=== PATIENT | female | born 1990 | race Caucasian/White ===

== ENCOUNTER 2023-04-17 19:09 | Inpatient (IN) | payer BC ==
[~2023-04-17] VITALS: Ht 163 cm; Wt 77.1 kg
[~2023-04-17 19:09] MED LIST: METHYLERGONOVINE INJ 0.2 MG/ML AMP IM ONE
[2023-04-17 19:34] VITALS: BP 124/82
[2023-04-17] MEDS ORDERED: LACTATED RINGERS 1,000 ML 500 ML IV PRN (20:00)
[2023-04-17] MEDS ORDERED: LIDOCAINE 2% w/EPI 1:200,000 20 ML VIAL INJ PRN (20:00)
[2023-04-17] MEDS ORDERED: D5 LR 1,000 ML IV SOLN 1,000 ML IV SCH (20:00)
[2023-04-17] MEDS ORDERED: MINERAL OIL 30 ML UDC TOP PRN (20:00)
[2023-04-17 20:05] LABS: BASOPHILS % (AUTO) 0 % (0-10); EOSINOPHILS # (AUTO) 0.1 10^3/uL (0.0-0.3); EOSINOPHILS % (AUTO) 1 % (0-10); HEMATOCRIT 29 % (35-52); HEMOGLOBIN 9.5 g/dL (11.5-16.0); LYMPHOCYTES % (AUTO) 17 % (12-44); MEAN CORPUSCULAR HEMOGLOBIN 28 pg (25-34); MEAN CORPUSCULAR HGB CONC 33 g/dL (32-36); MEAN CORPUSCULAR VOLUME 85 fL (80-99); MEAN PLATELET VOLUME 11.3 fL (9.0-12.2); MONOCYTES # (AUTO) 0.9 10^3/uL (0.0-1.0); MONOCYTES % (AUTO) 8 % (0-12); NEUTROPHILS # (AUTO) 8.5 10^3/uL (1.8-7.8); NEUTROPHILS % (AUTO) 73 % (42-75); PLATELET COUNT 230 10^3/uL (130-400); WHITE BLOOD COUNT 11.6 10^3/uL (4.3-11.0)
[2023-04-17 21:25] LABS: BACTERIA,URINE NEGATIVE /HPF; BILIRUBIN,URINE NEGATIVE (NEGATIVE); CLARITY,URINE CLEAR; COLOR,URINE YELLOW; GLUCOSE, URINE (UA) NEGATIVE (NEGATIVE); KETONES,URINE NEGATIVE (NEGATIVE); LEUKOCYTE ESTERASE ,URINE NEGATIVE (NEGATIVE); NITRITE,URINE NEGATIVE (NEGATIVE); PH,URINE 6.5 (5-9); PROTEIN,URINE NEGATIVE (NEGATIVE); SQUAMOUS EPITHELIAL CELL,UR 0-2 /HPF; WBC,URINE RARE /HPF
[2023-04-17] MEDS ORDERED: CATHETER FLUSH 10 ML SYR IV SCH (22:00)
[2023-04-18] VITALS (63 sets, daily range): BP systolic 92–144; BP diastolic 51–76
[2023-04-18] MEDS ORDERED: LACTATED RINGERS 1,000 ML 500 ML IV PRN (05:30)
[2023-04-18] MEDS: D5 LR 1,000 ML IV SOLN 1,000 ML IV SCH ×2 (05:46→13:33)
[2023-04-18] MEDS ORDERED: OXYTOCIN DRIP PRE-MIX 500 ML IV SCH (06:00)
[2023-04-18] MEDS ORDERED: OXYTOCIN DRIP PRE-MIX 500 ML IV ONE ×2 (06:04→22:56)
--- NOTE | 2023-04-18 11:59 | History & Physical-OB ---
OB - Chief Complaint & HPI Date/Time Date of Admission: Date of Admission: Apr 17, 2023 at 19:09 Date seen by a Provider: Apr 18, 2023 Time Seen by a Provider: 08:30 Chief Complaint/History OB-Reason for Admission/Chief: Induction of Labor Hx : 2 Hx Para: 1 Expected Date of Delivery: Apr 16, 2023 Gestational Age in Weeks: 40 Gestational Age in Days: 1 Other reason for admission: Patient desires elective IOL History of Labs O+, Ab neg, Rub Imm HIV/RPR/HepB/C NR Normal 1 hr GTT GBS neg Allergies and Home Medications Allergies Coded Allergies: Pertussis Vaccines (Verified Allergy, Mild, Itching, 04/17/23) Patient Home Medication List Home Medication List Reviewed: Yes OB - History Hx of Present Care: Yes Ultrasounds: Normal mid trimester US Obstetrical Complications: None Medical Complications: None Obstetrical History Hx : 2 Hx Para: 1 Hx # Term Pregnancies: 1 Number of Living Children: 1 Patient Past Medical History N/a Social History/Family History Alcohol Use: Denies Use Recreational Drug Use: No Smoking Cessation: Never smoker Immunizations Influenza Vaccine Up-to-Date: No; Not Current Hepatitis A: Yes Hepatitis B: Yes Tetanus Booster (TDap): Less than 5yrs Rubella: immune RPR/VDRL: Negative GBS Status: Negative HBsAG: Negative OB - Admission Exam Physical Exam Vitals: Vital Signs 04/18/23 04/18/23 04/18/23 07:15 07:30 11:00 Temp 36.7 Pulse 68 Resp 18 B/P (MAP) 106/63 (77) Pulse Ox 98 O2 Delivery Room Air HEENT: NCAT Heart: Rhythm Normal Lungs: Clear Abdomen: Gravid Cervical Dilatation: 5cm Effacement: 75% Station: Ballotable Membranes: Intact Heart Rate: 140's Accelerations: Accelerations Present Decelerations: No Decelerations Short Term Variability: Present Pricing/Signage Team Member Variability: Average (6-25) Contractions on Admission: 6-10 Minutes Apart Intensity: Moderate Lam Scoring Tool (Modified) Dilation (cm): 3-4cm (2) Effacement (%): 51-79% (2) Descent/Station: -2 (1) Cervix Consistency: Soft (2) Cervix Position: Middle/Mid-Position (1) Subtract 1 point for: Nulliparity (-1) Labs Laboratory Tests Test 04/17/23 19:17 04/17/23 19:40 Range/Units Urine Color YELLOW Urine Clarity CLEAR Urine pH 6.5 5-9 Urine Specific [place] 1.010 L 1.016-1.022 Urine Protein NEGATIVE NEGATIVE Urine Glucose (UA) NEGATIVE NEGATIVE Urine Ketones NEGATIVE NEGATIVE Urine Nitrite NEGATIVE NEGATIVE Urine Bilirubin NEGATIVE NEGATIVE Urine Urobilinogen 0.2 < = 1.0 MG/DL Urine Leukocyte Esterase NEGATIVE NEGATIVE Urine RBC (Auto) NEGATIVE NEGATIVE Urine RBC NONE /HPF Urine WBC RARE /HPF Urine Squamous Epithelial Cells 0-2 /HPF Urine Crystals NONE /LPF Urine Bacteria NEGATIVE /HPF Urine Casts NONE /LPF Urine Mucus NEGATIVE /LPF Urine Culture Indicated NO White Blood Count 11.6 H 4.3-11.0 10^3/uL Red Blood Count 3.37 L 3.80-5.11 10^6/uL Hemoglobin 9.5 L 11.5-16.0 g/dL Hematocrit 29 L 35-52 % Mean Corpuscular Volume 85 80-99 fL Mean Corpuscular Hemoglobin 28 25-34 pg Mean Corpuscular Hemoglobin Concent 33 32-36 g/dL Red Cell Distribution Width 13.6 10.0-14.5 % Platelet Count 230 130-400 10^3/uL Mean Platelet Volume 11.3 9.0-12.2 fL Immature Granulocyte % (Auto) 1 % Neutrophils (%) (Auto) 73 42-75 % Lymphocytes (%) (Auto) 17 12-44 % Monocytes (%) (Auto) 8 0-12 % Eosinophils (%) (Auto) 1 0-10 % Basophils (%) (Auto) 0 0-10 % Neutrophils # (Auto) 8.5 H 1.8-7.8 10^3/uL Lymphocytes # (Auto) 2.0 1.0-4.0 10^3/uL Monocytes # (Auto) 0.9 0.0-1.0 10^3/uL Eosinophils # (Auto) 0.1 0.0-0.3 10^3/uL Basophils # (Auto) 0.0 0.0-0.1 10^3/uL Immature Granulocyte # (Auto) 0.1 0.0-0.1 10^3/uL Syphilis Total Antibody Negative Negative OB - Assessment/Plan/Diagnosis Assessment Assessment: induction of labor Admission Dx Third Trimester 40 week gestation Admission Status: Inpatient Order (span 2 midnights) Reason for Inpatient Admission: Labor and post care Plan Other Plan 33 yo @ 40.1 wga here for elective IOL Plan - GBS neg - Pitocin IOL - Will hold off on AROM due to blottable fetus ALEYDA PRO MD Apr 18, 2023 11:59
[2023-04-18] MEDS ORDERED: fentaNYL 2 mcg/ml BUPIVA 0.125 100 ML ONE (14:21)
[2023-04-18] MEDS ORDERED: NALOXONE 0.4 MG/ML 1 ML VIAL IV PRN (14:30)
[2023-04-18] MEDS ORDERED: LACTATED RINGERS 1,000 ML 1,000 ML IV ONE (14:30)
[2023-04-18] MEDS ORDERED: fentaNYL 2 mcg/ml BUPIVA 0.125 100 ML EPI SCH (14:30)
[2023-04-18] MEDS ORDERED: ONDANSETRON INJECTION 4 MG/2 ML (SDV) IV PRN (14:30)
[2023-04-18] MEDS ORDERED: diphenhydrAMINE INJ 50 MG/ML VIAL IV PRN (14:30)
[2023-04-18] MEDS ORDERED: CATHETER FLUSH 10 ML SYR IV PRN (14:30)
[2023-04-18] MEDS ORDERED: fentaNYL INJECTION 100 MCG/2 ML VIAL ONE (14:35)
[2023-04-18] MEDS ORDERED: BUPIVACAINE 0.25% 10 ML VIAL ONE (14:35)
--- NOTE | 2023-04-18 16:38 | Labor Progress Note ---
Labor Progress Note Labor Progress Note Date Seen by Provider: Apr 18, 2023 Time Seen by Provider: 16:37 Subjective: Pt denies complaints. Pain controlled with epidural Objective: /0 AROM 1630 clear Assessment/Plan: Mago Chambers is a (33 /Para 2 / 1,Gestational Age (wks)40.1 here for elective IOL. CEFM/TOCO Continue pitocin induction Anesthesia: Epidural in place AROM 1630 clear Anticipate vaginal delivery. Vitals - Labs Vital Signs - I&O Vital Signs Date Time Temp Pulse Resp B/P (MAP) Pulse Ox O2 Delivery O2 Flow Rate FiO2 04/18/23 15:45 55 18 112/61 (78) 98 04/18/23 15:30 61 18 120/67 (84) 98 04/18/23 15:15 65 18 110/63 (79) 98 04/18/23 15:00 04/18/23 14:59 76 18 125/76 (92) 97 04/18/23 14:56 63 18 113/71 (85) 98 04/18/23 14:53 57 18 111/68 (82) 98 04/18/23 14:50 66 18 117/68 (84) 98 04/18/23 14:47 53 18 127/68 (87) 99 04/18/23 14:45 04/18/23 14:44 76 18 125/70 (88) 100 Room Air 04/18/23 14:41 65 18 124/66 (85) 99 Room Air 04/18/23 14:30 04/18/23 14:15 60 18 92/51 (65) Room Air 04/18/23 14:00 57 18 111/61 (78) Room Air 04/18/23 13:45 63 18 109/62 (78) Room Air 04/18/23 13:30 67 18 113/65 (81) Room Air 04/18/23 13:15 65 18 117/66 (83) Room Air 04/18/23 13:00 82 18 121/70 (87) Room Air 04/18/23 12:45 59 18 110/60 (77) Room Air 04/18/23 12:30 57 18 117/65 (82) Room Air 04/18/23 12:15 77 18 135/62 (86) Room Air 04/18/23 12:00 70 18 109/53 (71) Room Air 04/18/23 11:45 75 18 119/68 (85) Room Air 04/18/23 11:00 68 18 106/63 (77) Room Air 04/18/23 10:45 63 18 109/66 (80) Room Air 04/18/23 10:30 64 18 109/58 (75) Room Air 04/18/23 10:00 81 18 113/63 (80) Room Air 04/18/23 09:45 68 18 122/75 (91) Room Air 04/18/23 09:30 68 18 120/55 (76) Room Air 04/18/23 09:15 72 18 127/65 (85) Room Air 04/18/23 09:00 75 18 117/73 (88) Room Air 04/18/23 08:45 68 18 127/75 (92) Room Air 04/18/23 08:15 70 18 107/67 (80) Room Air 04/18/23 08:00 57 18 112/71 (85) Room Air 04/18/23 07:45 71 18 110/70 (83) Room Air 04/18/23 07:30 55 18 123/70 (87) 98 Room Air 04/18/23 07:15 36.7 56 18 113/65 (81) 99 Room Air 04/18/23 05:36 36.2 61 18 119/67 (84) 98 Room Air 04/17/23 19:34 36.7 79 20 97 Room Air Labs Laboratory Tests 04/17/23 19:17: Urine Color YELLOW, Urine Clarity CLEAR, Urine pH 6.5, Urine Specific [place] 1.010L, Urine Protein NEGATIVE, Urine Glucose (UA) NEGATIVE, Urine Ketones NEGATIVE, Urine Nitrite NEGATIVE, Urine Bilirubin NEGATIVE, Urine Urobilinogen 0.2, Urine Leukocyte Esterase NEGATIVE, Urine RBC (Auto) NEGATIVE, Urine RBC NONE, Urine WBC RARE, Urine Squamous Epithelial Cells 0-2, Urine Crystals NONE, Urine Bacteria NEGATIVE, Urine Casts NONE, Urine Mucus NEGATIVE, Urine Culture Indicated NO 04/17/23 19:40: White Blood Count 11.6H, Red Blood Count 3.37L, Hemoglobin 9.5L, Hematocrit 29L, Mean Corpuscular Volume 85, Mean Corpuscular Hemoglobin 28, Mean Corpuscular Hemoglobin Concent 33, Red Cell Distribution Width 13.6, Platelet Count 230, Mean Platelet Volume 11.3, Immature Granulocyte % (Auto) 1, Neutrophils (%) (Auto) 73, Lymphocytes (%) (Auto) 17, Monocytes (%) (Auto) 8, Eosinophils (%) (Auto) 1, Basophils (%) (Auto) 0, Neutrophils # (Auto) 8.5H, Lymphocytes # (Auto) 2.0, Monocytes # (Auto) 0.9, Eosinophils # (Auto) 0.1, Basophils # (Auto) 0.0, Immature Granulocyte # (Auto) 0.1, Syphilis Total Antibody Negative ALEYDA PRO MD Apr 18, 2023 16:38
[2023-04-18] MEDS: OXYTOCIN DRIP PRE-MIX 500 ML IV SCH ×2 (22:17→22:57)
[2023-04-18] MEDS ORDERED: BENZOCAINE/MENTHOL (DERMOPLAST) 56 ML CAN TP PRN (22:30)
[2023-04-18] MEDS ORDERED: WITCH HAZEL(TUCKS) 40 EA JAR TOP PRN (22:30)
--- NOTE | 2023-04-18 22:42 | OB Labor & Delivery Record ---
Vag Delivery Note Vag Delivery Note Date of Delivery: 04/18/23 Preoperative Diagnosis: Mago Chambers is a (33 /Para 2 / 1, Gestational Age (wks)40.1 wga here for elective IOL Postoperative Diagnosis: Same Attending Surgeon/Physician: Aleyda Webster MD Call Circuit Worker: None Anesthesia: Epidural Delivery Type: @ 9495 Findings: Viable male , apgars 8/9, weight 7#14 Lacerations: 2nd degree laceration and left labial laceration Intact placenta with 3 vessel cord. Nuchal cord x 1 (reduced at delivery of head), body cord or shoulder dystocia Estimated Blood Loss: 150 ml Complications: None Condition: Stable Description of Procedure: The patient is a 33 year old female who presented for elective IOL. She was admitted and informed consent was obtained. Her labor course was remarkable for pitocin induction. She progressed to complete dilatation and began to push. She was then set up for delivery. The 's head was delivered atraumatically in the [place] position, nuchal cord x 1 reduced at the delivery of the head. The shoulders and remainder of the infant's body were then delivered without difficulty. Upon delivery, the infant was vigorous and placed on maternal chest and the mouth and nares were bulb suctioned. After a 2 min delay cord was doubly clamped and cut by FOB and the remained on maternal chest. An intact placenta with 3-vessel cord delivered via [place] and there was found to be minimal bleeding.~ Vigorous fundal massage was performed and the fundus was found to be firm. IV oxytocin was given. Examination of the vagina and perineum revealed a 2nd degree and left labial laceration repaired in the usual fashion with 3-0 vicryl rapide suture. Following the repair, sponge, instrument and needle counts were correct. Mom and baby were both in stable condition in the labor suite. Vitals - Labs Vital Signs - I&O Vital Signs Date Time Temp Pulse Resp B/P (MAP) Pulse Ox O2 Delivery O2 Flow Rate FiO2 04/18/23 20:40 36.4 69 18 127/67 (87) 04/18/23 20:25 72 18 119/59 (79) 04/18/23 20:10 78 18 137/75 (95) 04/18/23 19:50 62 18 123/64 (83) 04/18/23 19:45 64 18 117/63 (81) 04/18/23 19:30 86 18 96/59 (71) 04/18/23 19:15 36.8 74 18 123/56 (78) 100 04/18/23 19:00 72 18 132/75 (94) 98 04/18/23 18:45 84 18 116/63 (80) 98 04/18/23 18:30 66 18 125/74 (91) 98 04/18/23 18:15 61 18 123/61 (81) 98 04/18/23 18:00 66 18 117/62 (80) 98 04/18/23 17:45 76 18 114/63 (80) 98 04/18/23 17:30 67 18 112/66 (81) 98 04/18/23 17:15 60 18 113/65 (81) 98 04/18/23 17:00 71 18 107/54 (71) 98 04/18/23 16:45 60 18 95/55 (68) 98 04/18/23 16:30 59 18 112/58 (76) 98 04/18/23 16:15 66 18 95/53 (67) 98 04/18/23 16:00 73 18 106/65 (79) 98 04/18/23 15:45 55 18 112/61 (78) 98 04/18/23 15:30 61 18 120/67 (84) 98 04/18/23 15:15 65 18 110/63 (79) 98 04/18/23 15:00 04/18/23 14:59 76 18 125/76 (92) 97 04/18/23 14:56 63 18 113/71 (85) 98 04/18/23 14:53 57 18 111/68 (82) 98 04/18/23 14:50 66 18 117/68 (84) 98 04/18/23 14:47 53 18 127/68 (87) 99 04/18/23 14:45 04/18/23 14:44 76 18 125/70 (88) 100 Room Air 04/18/23 14:41 65 18 124/66 (85) 99 Room Air 04/18/23 14:30 04/18/23 14:15 60 18 92/51 (65) Room Air 04/18/23 14:00 57 18 111/61 (78) Room Air 04/18/23 13:45 63 18 109/62 (78) Room Air 04/18/23 13:30 67 18 113/65 (81) Room Air 04/18/23 13:15 65 18 117/66 (83) Room Air 04/18/23 13:00 82 18 121/70 (87) Room Air 04/18/23 12:45 59 18 110/60 (77) Room Air 04/18/23 12:30 57 18 117/65 (82) Room Air 04/18/23 12:15 77 18 135/62 (86) Room Air 04/18/23 12:00 70 18 109/53 (71) Room Air 04/18/23 11:45 75 18 119/68 (85) Room Air 04/18/23 11:00 68 18 106/63 (77) Room Air 04/18/23 10:45 63 18 109/66 (80) Room Air 04/18/23 10:30 64 18 109/58 (75) Room Air 04/18/23 10:00 81 18 113/63 (80) Room Air 04/18/23 09:45 68 18 122/75 (91) Room Air 04/18/23 09:30 68 18 120/55 (76) Room Air 04/18/23 09:15 72 18 127/65 (85) Room Air 04/18/23 09:00 75 18 117/73 (88) Room Air 04/18/23 08:45 68 18 127/75 (92) Room Air 04/18/23 08:15 70 18 107/67 (80) Room Air 04/18/23 08:00 57 18 112/71 (85) Room Air 04/18/23 07:45 71 18 110/70 (83) Room Air 04/18/23 07:30 55 18 123/70 (87) 98 Room Air 04/18/23 07:15 36.7 56 18 113/65 (81) 99 Room Air 04/18/23 05:36 36.2 61 18 119/67 (84) 98 Room Air ALEYDA WEBSTER MD Apr 18, 2023 22:42
[2023-04-19 00:21] VITALS: BP 116/59
[2023-04-19] MEDS: IBUPROFEN 600 MG TABLET PO SCH ×4 (00:26→18:39)
[2023-04-19] MEDS: ACETAMINOPHEN 500 MG TABLET PO SCH ×4 (00:27→18:40)
[2023-04-19 04:15] VITALS: BP 107/65
[2023-04-19] MEDS ORDERED: CATHETER FLUSH 10 ML SYR IV SCH (06:00)
[2023-04-19 06:12] LABS: BASOPHILS # (AUTO) 0.1 10^3/uL (0.0-0.1); BASOPHILS % (AUTO) 0 % (0-10); EOSINOPHILS % (AUTO) 0 % (0-10); HEMATOCRIT 29 % (35-52); HEMOGLOBIN 9.7 g/dL (11.5-16.0); LYMPHOCYTES # (AUTO) 1.4 10^3/uL (1.0-4.0); LYMPHOCYTES % (AUTO) 8 % (12-44); MEAN CORPUSCULAR HEMOGLOBIN 28 pg (25-34); MEAN CORPUSCULAR HGB CONC 33 g/dL (32-36); MEAN CORPUSCULAR VOLUME 84 fL (80-99); MEAN PLATELET VOLUME 11.4 fL (9.0-12.2); MONOCYTES # (AUTO) 0.8 10^3/uL (0.0-1.0); MONOCYTES % (AUTO) 5 % (0-12); NEUTROPHILS # (AUTO) 15.5 10^3/uL (1.8-7.8); NEUTROPHILS % (AUTO) 87 % (42-75); PLATELET COUNT 199 10^3/uL (130-400); WHITE BLOOD COUNT 17.9 10^3/uL (4.3-11.0)
[2023-04-19] MEDS: DOCUSATE SODIUM 100 MG CAPSULE PO SCH (09:00)
[2023-04-19] MEDS ORDERED: FERROUS SULFATE 325 MG (IRON) TABLET PO SCH (09:00)
[2023-04-19 09:10] VITALS: BP 104/68
--- NOTE | 2023-04-19 11:04 | Postpartum Progress Note ---
CAROLINA RAMOS MD, RESIDENT 04/19/23 1104: Note Note Day # 1 Subjective: Patient is without complaints. Ambulating, voiding. Tolerating a regular diet without nausea or vomiting. Normal lochia. Pain is well controlled with oral pain medications. going well. Objective: Physical Exam: General - Alert and oriented, no apparent distress Abdomen - Soft, appropriately tender to palpation, non-distended, fundus firm at umbilicus Extremities - no edema, negative Pavan's bilaterally Assessment: 33yo post- day # 1, status post spontaneous vaginal delivery. Recovering well, hemodynamically stable Plan: Routine care. Encourage breast feeding. Encourage ambulation. Ferrous sulfate supplementation. Plan for discharge 04/20/23 Vitals - Labs Vital Signs - I&O Vital Signs Date Time Temp Pulse Resp B/P (MAP) Pulse Ox O2 Delivery O2 Flow Rate FiO2 04/19/23 09:10 36.3 67 18 104/68 (80) 99 Room Air 04/19/23 04:15 36.1 60 18 107/65 (79) 96 Room Air 04/19/23 00:21 36.8 79 18 116/59 (78) 97 Room Air 04/18/23 23:51 72 18 124/62 (82) Room Air 04/18/23 22:09 37.2 94 18 144/66 (92) 04/18/23 21:55 71 18 126/60 (82) 04/18/23 21:40 100 18 120/71 (87) 04/18/23 21:25 77 18 114/57 (76) 04/18/23 21:10 75 18 108/59 (75) 04/18/23 20:55 70 18 108/57 (74) 04/18/23 20:40 36.4 69 18 127/67 (87) 04/18/23 20:25 72 18 119/59 (79) 04/18/23 20:10 78 18 137/75 (95) 04/18/23 19:50 62 18 123/64 (83) 04/18/23 19:45 64 18 117/63 (81) 04/18/23 19:30 86 18 96/59 (71) 04/18/23 19:15 36.8 74 18 123/56 (78) 100 04/18/23 19:00 72 18 132/75 (94) 98 04/18/23 18:45 84 18 116/63 (80) 98 04/18/23 18:30 66 18 125/74 (91) 98 04/18/23 18:15 61 18 123/61 (81) 98 04/18/23 18:00 66 18 117/62 (80) 98 04/18/23 17:45 76 18 114/63 (80) 98 04/18/23 17:30 67 18 112/66 (81) 98 04/18/23 17:15 60 18 113/65 (81) 98 04/18/23 17:00 71 18 107/54 (71) 98 04/18/23 16:45 60 18 95/55 (68) 98 04/18/23 16:30 59 18 112/58 (76) 98 04/18/23 16:15 66 18 95/53 (67) 98 04/18/23 16:00 73 18 106/65 (79) 98 04/18/23 15:45 55 18 112/61 (78) 98 04/18/23 15:30 61 18 120/67 (84) 98 04/18/23 15:15 65 18 110/63 (79) 98 04/18/23 15:00 04/18/23 14:59 76 18 125/76 (92) 97 04/18/23 14:56 63 18 113/71 (85) 98 04/18/23 14:53 57 18 111/68 (82) 98 04/18/23 14:50 66 18 117/68 (84) 98 04/18/23 14:47 53 18 127/68 (87) 99 04/18/23 14:45 04/18/23 14:44 76 18 125/70 (88) 100 Room Air 04/18/23 14:41 65 18 124/66 (85) 99 Room Air 04/18/23 14:30 04/18/23 14:15 60 18 92/51 (65) Room Air 04/18/23 14:00 57 18 111/61 (78) Room Air 04/18/23 13:45 63 18 109/62 (78) Room Air 04/18/23 13:30 67 18 113/65 (81) Room Air 04/18/23 13:15 65 18 117/66 (83) Room Air 04/18/23 13:00 82 18 121/70 (87) Room Air 04/18/23 12:45 59 18 110/60 (77) Room Air 04/18/23 12:30 57 18 117/65 (82) Room Air 04/18/23 12:15 77 18 135/62 (86) Room Air 04/18/23 12:00 70 18 109/53 (71) Room Air 04/18/23 11:45 75 18 119/68 (85) Room Air I & O 04/19/23 07:00 Intake Total 2000 ml Balance 2000 ml Labs Laboratory Tests 04/19/23 05:40: White Blood Count 17.9H, Red Blood Count 3.45L, Hemoglobin 9.7L, Hematocrit 29L, Mean Corpuscular Volume 84, Mean Corpuscular Hemoglobin 28, Mean Corpuscular Hemoglobin Concent 33, Red Cell Distribution Width 13.9, Platelet Count 199, Mean Platelet Volume 11.4, Immature Granulocyte % (Auto) 1, Neutrophils (%) (Auto) 87H, Lymphocytes (%) (Auto) 8L, Monocytes (%) (Auto) 5, Eosinophils (%) (Auto) 0, Basophils (%) (Auto) 0, Neutrophils # (Auto) 15.5H, Lymphocytes # (Auto) 1.4, Monocytes # (Auto) 0.8, Eosinophils # (Auto) 0.0, Basophils # (Auto) 0.1, Immature Granulocyte # (Auto) 0.1 ALEYDA PRO MD 04/19/23 1126: Supervisory-Addendum Brief Supervisory Addendum I personally performed the grigsby portions of the visit, discussed case with resident and concur with resident documentation of history, physical exam, assessment and treatment plan unless otherwise noted. CAROLINA RAMOS MD, RESIDENT Apr 19, 2023 11:04 ALEYDA PRO MD Apr 19, 2023 11:26
[2023-04-19 12:56] VITALS: BP 110/75
[2023-04-19 18:42] VITALS: BP 114/64
[2023-04-20 00:25] VITALS: BP 113/63
[2023-04-20] MEDS: IBUPROFEN 600 MG TABLET PO SCH ×2 (00:25→06:16)
[2023-04-20] MEDS: ACETAMINOPHEN 500 MG TABLET PO SCH ×2 (00:25→06:15)
[2023-04-20] MEDS: DOCUSATE SODIUM 100 MG CAPSULE PO SCH ×2 (00:25→09:15)
[2023-04-20 06:16] VITALS: BP 113/67
[2023-04-20] MEDS ORDERED: FERROUS SULFATE 325 MG (IRON) TABLET PO SCH (07:00)
--- NOTE | 2023-04-20 08:07 | Anesthesia-Regional Post-Op ---
Regional Patient Condition Mental Status: Alert, Oriented x3 Circulation: Same as Pre-Op Headache: Absent Sensation: Full Recovery Motor Block: Absent Post Op Complications Complications None Follow Up Care/Instructions Patient Instructions None needed. Anesthesia/Patient Condition Patient is doing well, no complaints, stable vital signs, no apparent adverse anesthesia problems. No complications reported per nursing. GAVIN DIXON DO Apr 20, 2023 08:07
[2023-04-20 09:15] VITALS: BP 123/65
--- NOTE | 2023-04-20 10:00 | Discharge Summary ---
Diagnosis/Chief Complaint Date of Admission Apr 17, 2023 at 19:09 Date of Discharge 04/20/23 Admission Diagnosis Admission Diagnosis Third Trimester 40 week gestation Discharge Diagnosis Uncomplicated Asymptomatic Anemia of acute blood loss Discharge Summary-Simple/Stand Procedures Epidural placement Uncomplicated Discharge Physical Examination Allergies: Coded Allergies: Pertussis Vaccines (Verified Allergy, Mild, Itching, 04/17/23) Vitals & I&Os Vital Sign - Last 12Hours Date Time Temp Pulse Resp B/P (MAP) Pulse Ox O2 Delivery O2 Flow Rate FiO2 04/20/23 09:15 36.2 78 18 123/65 (84) 98 Room Air General Appearance: Alert, Oriented X3, No Acute Distress Respiratory: Clear to Auscultation, Normal Air Movement Cardiovascular: Regular Rate, No Murmurs Abdominal: Normal Bowel Sounds, Soft, No Tenderness, Other (Fundus) Extremities: No Edema, No Tenderness/Swelling Neuro: Strength at 5/5 X4 Ext Hospital Course See final discharge diagnosis. Discussion & Recommendations 33 yo G2 now P2 @ 40.1 wga delivery term male via uncomplicated Discharge Condition at discharge stable Instructions to patient/family Please see electronic discharge instructions given to patient. Discharge Medications Reviewed and agree with Discharge Medication list on patient's Discharge I nstruction sheet ALEYDA PRO MD Apr 20, 2023 10:00
[2023-04-20] MEDS ORDERED: DOCU100C37 PO (10:06)
[2023-04-20] MEDS ORDERED: IBUP-844 PO (10:06)
[2023-04-20] MEDS ORDERED: FERR325T24 PO (10:06)
--- NOTE | 2023-04-20 10:08 | Discharge Summary ---
Discharge Inst-Women[facility] Serv Depart Medications New, Converted or Re-Newed RX: Transmitted to Pharmacy New Medications: Docusate Sodium (Docusate Sodium) 100 Mg Capsule 100 MG PO BID, #14 CAP Ferrous Sulfate (Ferosul) 325 Mg (65 Mg Iron) Tablet 325 MG PO DAILY@0700, #30 TAB Ibuprofen (Ibu) 600 Mg Tablet 600 MG PO Q6H, #30 TAB Follow Up/Instructions Goal/Follow Up: F.u 6 weeks with Darin Activity Activity: Activity as Tolerated Driving Instructions: You May Drive NO SMOKING: NO SMOKING Nothing Inside Vagina: No Douching, No [place], No Tampons Diet Discharge Diet: No Restrictions Symptoms to Report to DrValentino: Bleeding Excessive, Fever Over 101 Degrees F Copies To 1: ALEYDA PRO MD, HOLLY R MD Apr 20, 2023 10:08
== END 2023-04-20 11:25 | disposition home or self-care (01) | DRG 806 ==
LOC: LDRP 19:09
PROVIDERS: ADMIT Family Medicine; ATTEND Family Medicine
PROC: 10E0XZZ Delivery of Products of Conception, External Approach (ICD-10-PCS; principal; 2023-04-18)
PROC: 0KQM0ZZ Repair Perineum Muscle, Open Approach (ICD-10-PCS; 2023-04-18)
PROC: 3E033VJ Introduction of Other Hormone into Peripheral Vein, Percutaneous Approach (ICD-10-PCS; 2023-04-18)
PROC: 10907ZC Drainage of Amniotic Fluid, Therapeutic from Products of Conception, Via Natural or Artificial Opening (ICD-10-PCS; 2023-04-18)
DX: O48.0 Post-term pregnancy (principal); D62 Acute posthemorrhagic anemia; Z37.0 Single live birth; O70.1 Second degree perineal laceration during delivery; Z3A.40 40 weeks gestation of pregnancy; O69.81X0 Labor and delivery complicated by cord around neck, without compression, not applicable or unspecified; O90.81 Anemia of the puerperium; Z88.7 Allergy status to serum and vaccine
CPT/HCPCS: 36415; 81000; 85025; 86780; 86850; 86900; 86901